=== PATIENT | female | born 1960 | race African-American/Black ===

== ENCOUNTER 2020-11-03 15:47 | Inpatient (IN) | payer MEDICAID ==
[~2020-11-03] VITALS: Ht 160 cm; Wt 77.1 kg
[~2020-11-03 15:47] MED LIST: APAP W/CODEINE1 TA2 PO; COLCHICINE0.6 MG PO; FOLIC ACID1 MG PO; HYDROCODONE-AP1 EAC6 PO; IBUPROFEN 600600 M1 PO; KEFLEX500 M1 PO; LEVAQUIN 500 M500 M3 PO; MEDROLDOSEPACK PO; METFORMIN HCL500 MG PO; METHOTREXATE 22.5 MG PO; MOTION SICKNESS25 M1 PO; NEURONTIN 300M300 M2 PO; OXYCODONE HCL 55 MG PO; PREDNISONE 10 M10 MG PO; PREDNISONE10 MG PO; PROTONIX40 M1 PO; PROTONIX40 M2 PO
--- NOTE | 2020-11-03 18:20 | NUR ---
ASSUMED PT CARE UPON ADMISISON FROM [facility] AT 1745. PT VSS, A&OX4. PT HAS NO COMPLAINTS OF PAIN. SLIGHT EDEMA IN BILATERAL LE. PT PLEASANT, CALLS WHEN NEEDED. FALL PRECAUTIONS IN PLACE. ABLE TO ANSWER ALL QUESTIONS FOR ADMISSION.
[2020-11-03 19:32] VITALS: BP 157/75
--- NOTE | 2020-11-04 03:29 | NUR ---
PATIENT AOX4 MAKES NEEDS KNOWN. PATIENT FEELS WEAK THIS SHIFT. PATIENT ON METHROTREXATE WEEKLY, PATIENT TOLD THIS NURSE SHE HAS NOT STARTED THE MED YET AND WAITING FOR DR. FERRER TO RESUME MED.PATIENT REFUSED GABAPENTINE D/T HER FEET FEELING HOT. FALL PRECAUTION IN BED. PATIENT DENIED PAIN OR DISCOMFORT. PATIENT IN BED ASLEEP AT THIS TIME BREATHING REGULAR AND UNLABOURED.
[2020-11-04 05:58] LABS: ABSOLUTE NEUTROPHILS 4.2 thou/uL (1.4-8.2); BASOPHILS 0.2 % (0.0-2.0); HEMATOCRIT 34.4 % (37.0-47.0); HEMOGLOBIN 10.9 gm/dL (12.0-15.0); LYMPHOCYTES 4.6 % (24.0-44.0); MCH 27.7 pg (26.0-34.0); MCHC 31.9 g/dL (28.0-37.0); MONOCYTES 6.8 % (1.0-8.0); PLATELET COUNT 173 thou/uL (150-400); POLYS 88.4 % (36.0-66.0); RBC 3.95 mil/uL (4.20-5.00); RDW 14.2 % (10.5-14.5); WBC 4.8 thou/uL (4.0-11.0)
[2020-11-04 06:23] LABS: CALCIUM 8.9 mg/dL (8.5-10.1); CREATININE 0.7 mg/dL (0.6-1.0); MAGNESIUM 2.2 mg/dL (1.8-2.4); POTASSIUM 4.4 mmol/L (3.5-5.1)
[2020-11-04 08:00] VITALS: BP 145/75
[2020-11-04 08:25] VITALS: BP 145/75
--- NOTE | 2020-11-04 12:45 | NUR ---
MET WITH PATIENT WHO ADMITS TO [facility] TRANSFER FROM [facility] FOR RHEMATOLOGY CONSULT. PATIENT WITH HX OF LUPUS. PATIENT HAS A PREV STAY AT [facility] IN WHICH PATIENT WAS DC HOME. SHE REPORTS SHE READMITTED TO [facility] DUE TO WEAKNESS. SHE REPORTS THAT WAY HER FATHERS DECISION. SHE LIVES IN HOME WITH HER FATHER AND GRANDCHILD. SHE STAIRS TO ENTER HOME. SHE WAS USING [employer] WHICH WAS NEW PREV INDEPENDENT WITH ADLS. 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 SHE HAS NO HEALTH INSURANCE. SHE HAS PRIMARY CARE PHYS DR SUE MAY, INTERNAL MEDICINE AT [facility]. REHAB CONSULT IN PROCESS. PATIENT AGREEABLE SHE WANTS TO GET BETTER AND WOULD BE AGREEABLE TO [facility].
[2020-11-04 19:38] VITALS: BP 140/73
--- NOTE | 2020-11-04 21:57 | NUR ---
ASSUMED CARE OF PT AT 0700. PT IS A&OX4 AND VITAL SIGNS ARE STABLE. PT DENIES PAIN. NOTED +1 EDEMA TO BLE, LEGS ELEVATED TOLERATED. ACCU CHECKS ACHS. IV TO LEFT AC PLACED AFTER RIGHT AC LOST PLACEMENT DURING TRANSFER. PT TOLERATED PO MEDICATIONS WITHOUT ISSUES. AT APPROXIMATELY 1500 PT CALLED OUT FOR ASSISTANCE AND WAS VOMITING WHEN NURSING ENTERED THE ROOM. PT REPORTED SUDDEN ONSET OF N/V, BG WNL, VITAL SIGNS STABLE. PT REPORTED HEADACHE AND DIZZINESS. PT STATED "IF I OPEN MY EYES I FEEL OFF BALANCE." PT DENIED RINGING IN EARS. PT INCONTINENT OF URINE AT THIS TIME DUE TO INABILITY TO SAFELY MOVE TO COMMODE. PT ASSISTED INTO BED BY NURSING STAFF. APPROXIMATELY 15 MINUTES AFTER GETTING INTO BED PT REPORTED RELIEF AND DENIES FURTHER N/V. CARDIAC STRIPS REVIEWED AND PLACED ON CHART. FALL PRECAUTIONS IN PLACE AND NURSING WILL CONTINUE TO MONITOR.
--- NOTE | 2020-11-05 02:46 | NUR ---
PT CARE ASSUMED WITH PT IN BED WATCHING TV.PT IS A/O X4.PT IS UP WITH X1 ASSIST TO BSC AND ALSO USES BEDPAN.PT HAS BLE EDEMA AND DENIED PAIN .PT IS ACCUCHECK ACHS WITH LOW SSI.WILL CONTINUE TO MONITOR PER POC
[2020-11-05 08:26] VITALS: BP 166/81
[2020-11-05 15:23] VITALS: BP 122/68
[2020-11-05 19:58] VITALS: BP 125/59
[2020-11-06 01:05] LABS: GLYCOHEMOGLOBIN (HGB A1C) 5.9 % (4.8-5.6)
--- NOTE | 2020-11-06 02:34 | NUR ---
PT CARE ASSUMED WITH PT IN CHAIR WATCHING TV.PT IS A/O X4.PT IS UP WITH X1 ASSIST TO THE BSC.PT DENIED PAIN AND FEVER.PT HAS BLE EDEMA.PT IS ACCUCHECK ACHS WITH LOW SSI.IV ACCESS ON LT AC WITH NS @100.WILL CONTINUE TO MONITOR PER POC
[2020-11-06 08:01] VITALS: BP 145/71
[2020-11-06 11:46] LABS: BASOPHILS 0.2 % (0.0-2.0); MCH 27.8 pg (26.0-34.0); WBC 5.1 thou/uL (4.0-11.0)
[2020-11-06 11:48] LABS: EOSINOPHILS 0.7 % (0.0-3.0); HEMATOCRIT 33.9 % (37.0-47.0); HEMOGLOBIN 10.9 gm/dL (12.0-15.0); LYMPHOCYTES 14.1 % (24.0-44.0); MCHC 32.2 g/dL (28.0-37.0); MCV 86.4 fL (80.0-100.0); MONOCYTES 7.9 % (1.0-8.0); PLATELET COUNT 152 thou/uL (150-400); POLYS 77.1 % (36.0-66.0); RBC 3.92 mil/uL (4.20-5.00); RDW 14.1 % (10.5-14.5)
[2020-11-06 12:03] LABS: ALBUMIN 2.3 g/dL (3.4-5.0); CALCIUM 8.9 mg/dL (8.5-10.1); CREATININE 0.7 mg/dL (0.6-1.0); MAGNESIUM 1.8 mg/dL (1.8-2.4); POTASSIUM 3.7 mmol/L (3.5-5.1); TOTAL BILIRUBIN 0.5 mg/dL (0.2-1.0); TOTAL PROTEIN 6.6 g/dL (6.4-8.2)
[2020-11-06 16:31] VITALS: BP 129/55
[2020-11-06 19:36] VITALS: BP 148/73
--- NOTE | 2020-11-06 19:55 | NUR ---
Assumed pt care at 7am.Pt in and out of bed with sba.Assessment completed.vss. Pt up in chair for all meals.Dr Garza here,order noted.Fall bundle in place. Pt encouraged to call for assist as needed.Pt will possiblt transfer to rehab in am. No verbal c/o . Will continue to monitor.
--- NOTE | 2020-11-07 02:39 | NUR ---
PT CARE ASSUMED WITH PT IN CHAIR .PT IS A/O X4.PT IS UP TO [facility] STANDBY ASSIST.PT APPEARED TO BE IN NO DISTRESS.PT IS ACCUCHECK ACHS.PT HAS BLE EDEMA.WILL CONTINUE TO MONITOR
[2020-11-07 04:59] LABS: URINE BILIRUBIN NEGATIVE (Negative); URINE BLOOD NEGATIVE (Negative); URINE CLARITY CLEAR; URINE COLOR YELLOW; URINE GLUCOSE-RANDOM* NEGATIVE (Negative); URINE KETONES NEGATIVE (Negative); URINE LEUKOCYTES-REFLEX TRACE (Negative); URINE NITRITE-REFLEX NEGATIVE (Negative); URINE PROTEIN (DIPSTICK) NEGATIVE (Negative); URINE UROBILINOGEN 0.2 E.U./dl (0.2-1.0)
[2020-11-07 05:15] LABS: ABSOLUTE NEUTROPHILS 3.9 thou/uL (1.4-8.2); BASOPHILS 0.3 % (0.0-2.0); EOSINOPHILS 0.6 % (0.0-3.0); HEMATOCRIT 32.1 % (37.0-47.0); HEMOGLOBIN 10.3 gm/dL (12.0-15.0); LYMPHOCYTES 13.5 % (24.0-44.0); MCH 27.8 pg (26.0-34.0); MCV 86.9 fL (80.0-100.0); MONOCYTES 11.2 % (1.0-8.0); PLATELET COUNT 128 thou/uL (150-400); POLYS 74.4 % (36.0-66.0); RBC 3.69 mil/uL (4.20-5.00); RDW 14.1 % (10.5-14.5); WBC 5.2 thou/uL (4.0-11.0)
[2020-11-07 05:27] LABS: ALBUMIN 2.2 g/dL (3.4-5.0); CALCIUM 8.8 mg/dL (8.5-10.1); CREATININE 0.6 mg/dL (0.6-1.0); MAGNESIUM 2.1 mg/dL (1.8-2.4); PHOSPHORUS 2.8 mg/dL (2.5-4.9); TOTAL BILIRUBIN 0.4 mg/dL (0.2-1.0); TOTAL PROTEIN 6.6 g/dL (6.4-8.2)
[2020-11-07 07:49] VITALS: BP 153/74
--- NOTE | 2020-11-07 13:22 | NUR ---
ASSUMED PT CARE THIS AM. PT VSS, A&OX4. PT PLEASANT, CALLS APPROPRIATELY WHEN NEEDED. PT COMPLAINING OF NO PAIN. PT UP WITH PHYSICAL THERAPY THIS AM. PT PIVOTS TO THE BEDSIDE COMMODE. TOOK MEDS WELL THIS AM WITHOUT COMPLAINT. HYDRATION ENCOURAGED. BLE EDEMA NOTED, ENCOURAGED TO RAISE FEET. IV PATENT, FLUIDS INFUSING.
--- NOTE | 2020-11-07 16:02 | NUR ---
PT WAS SEEN BY RHEUMATOLOGY THIS DAY. [facility] IS FOLLOWING AND HAVE INDICATED THAT THEY WOULD LIKELY BE ABLE TO ACCEPT IF PT NEEDED A SHORT STAY ONCE MEDICALLY STABLE. [facility] COSNULTED AND SHE WAS SEEN BY WELFARE AIDE THIS DAY. CM TO FOLLOW INDICATED WITH DC PLANNING.
[2020-11-07 16:54] VITALS: BP 134/59
[2020-11-07 19:48] VITALS: BP 166/84
[2020-11-08 06:06] LABS: HEMATOCRIT 32.1 % (37.0-47.0); HEMOGLOBIN 10.4 gm/dL (12.0-15.0); MCHC 32.3 g/dL (28.0-37.0); MCV 86.5 fL (80.0-100.0); RBC 3.71 mil/uL (4.20-5.00); RDW 14.6 % (10.5-14.5); WBC 5.4 thou/uL (4.0-11.0)
[2020-11-08 06:22] LABS: CREATININE 0.6 mg/dL (0.6-1.0); POTASSIUM 3.9 mmol/L (3.5-5.1)
--- NOTE | 2020-11-08 08:07 | NUR ---
Assumed pt care at 1900. A/OX4, VSS.Denies pain on assessment, up with SBA to BSC. Continent of B&B, IVF infusing via LAC w/o any problems voiced.Pt chose to sleep on the chair,feet elevated as tolorated.NSR on telemetry.Fall precautions in place.
[2020-11-08 08:28] VITALS: BP 124/59
--- NOTE | 2020-11-08 11:22 | NUR ---
ASSUMED PT CARE THIS AM. PT VSS, A&OX4. PT COMPLAINING OF NO PAIN AT THIS TIME. PT IN CHAIR, LEGS ARE ELEVATED. BLE EDEMA NOTED. IV PATENT, FLUIDS INFUSING WELL. MEDS TAKEN WITHOUT COMPLAINT THIS AM. PT AMBULATORY TO THE BEDSIDE COMMODE, PT HAS HAD NO DIFFICULTIES TELLING US WHEN SHE NEEDS TO GO TO THE BATHROOM. HYDRATION ENCOURAGED.
--- NOTE | 2020-11-08 15:25 | NUR ---
PT CONTINUES TO WORK WITH THERAPY. [facility] INDICATED THAT PT MAY BE TOO HIGH LEVEL FOR ADMISSION FOR ACUTE INPATIENT REHAB SERVICES AT THIS TIME. PT RESIDES IN [place] AND IT HAD BEEN INDICATED THAT OP THERAPY COULD BE VOUCHERED HERE PT WOULD NOT HAVE CONVIEIENT TRANSPORT TO AND FROM OP THERPAY HERE AT [facility] HAD SPOKEN WITH OP THREAOY DIRECTOR AT [facility] AND IT HAD BEEN INDICATED THAT THEY COULDN'T PROVIDE ANY HOMER VISITS TO PT UPON DC. PT HAD NEEDED TO WORK WITH PT ON STEPS THIS DAY BUT COMPLAINED OF DIZZINESS AND HADN'T TRIED THEM. CM COMMUNICATED WITH MIRNA AND WILL FOLLOW UP WITH [facility] LIAISON AND WATER TAXI FERRY OPERATOR. CM TO FOLLOW INDICATED WITH DC PLANNING.
[2020-11-08 16:25] VITALS: BP 135/59
[2020-11-08 19:30] VITALS: BP 150/66
[2020-11-09 01:33] VITALS: BP 131/72
--- NOTE | 2020-11-09 03:43 | NUR ---
Assumed pt care at 1900. A/OX4,VSS and afebrile at beginning of shift but woke up complaining of not feeling well,nausea no emesis,temp 101.4 medicated with Tylenol temp down to 101.0,reports feeling a little better though,Juliet PRORATE CLERK notified of status,monitor pt for another hour and check temparature. Resting in bed quietly at this time,w/o distress will continue to monitor pt. SR on telemetry. Fall precautions in place.
--- NOTE | 2020-11-09 12:04 | NUR ---
CARE TEAM INDICATED THAT SHE IS TOO HIGH LEVEL FOR [facility] ACUTE INPATIENT REHAB ADMISSION. CM SPOKE WITH HER ABOUT OP PT/OT HERE OR AT [facility] IF THEY COULD PROVIDE IT. PT INDCIATED SHE WOULD PREFER TO HAVE A HH OPTION IF POSSIBLE SHE FEARS HAVING TO NAVIGATE STEPS MULTIPAL TIMES A DAY. SHE ALSO DOESN'T WANT TO HAVE TO RELY ON HER 76YR OLD DAD FOR TRANSPORT TO AND FROM. CM SENT REFERRAL TO [facility] FOR REVIEW FOR HOMER VISITS. PT INDICATED SHE HAD BEEN SET UP WITH [facility] THROUGH [facility]. CM TO FIGURE OUT WHAT TYPE OF RESOUCE THIS IS. PT INDICATED SHE NAY NEED MEDICAL TRNASPORT HOME IF SHE IS TO DC HOME THIS DAY. CM TO FOLLOW INDICATED WITH DC PLANNING.
[2020-11-09 15:33] VITALS: BP 131/72
--- NOTE | 2020-11-09 16:18 | NUR ---
ASSUMED CARE OF PATIENT AT SHIFT CHANGE. ASSESSMENT CHARTED. MEDICATION ADMINISTERED PER EMAR. VSS. PATIENT IS A&OX4 AND MAKES NEEDS KNOWN. PATIENT DENIES PAIN BUT VOICES NUMBNESS THAT HAS BEEN BOTHERING HER FOR APPROX. 3 WEEKS. MRI OF THORACIC SPINE WAS COMPLETED THIS MORNING W NO SIGNIFICANT FINDINGS. PATIENT WAS RE-EXAMINED BY PT AND OT TO SEE IF SHE QUALIFIED FOR [facility] BUT IS TOO HIGH FUNCTIONING. ANXIOUS THIS DAY D/T ANNIVERSARY OF MOTHERS . PROVIDED W DISTRACTIONS SUCH MODELING MICHELLE AND COLORING PAGES. PROVIDER AWARE OF DISCHARGE AND PATIENT WILL GO HOME W HH. DISCHARGE INSTRUCTIONS WILL BE PROVIDED ALONG W REQUESTED MRI RESULTS. VAN TRANSPORTATION TO PICK PATIENT UP AT [phone]. WILL CONTINUE TO MONITOR
[2020-11-09] MEDS ORDERED: CLOPIDOGREL75 MG PO (16:34)
[2020-11-09] MEDS ORDERED: DEXAMETHASONE 22 M1 PO (16:35)
[2020-11-09] MEDS ORDERED: B-12500 MCG PO (16:35)
[2020-11-09] MEDS ORDERED: TREXALL10 MG PO (16:36)
--- NOTE | 2020-11-09 20:58 | NUR ---
I AGREE WITH NURSING ASSESSMENT AND NURSING NOTE DONE BY SHAMAR/HAND BINDER CUTTER.
== END 2020-11-09 19:45 | disposition home health service (06) | DRG 65 ==
LOC: 4W 15:47
PROVIDERS: Hospitalist; Internal Medicine; Nurse Practitioner; Psychiatry & Neurology Neurology; ADMIT Internal Medicine; ATTEND Internal Medicine
DX: I63.81 Other cerebral infarction due to occlusion or stenosis of small artery (principal); M33.20 Polymyositis, organ involvement unspecified; R65.10 Systemic inflammatory response syndrome (SIRS) of non-infectious origin without acute organ dysfunction; Q21.1 Atrial septal defect; M32.9 Systemic lupus erythematosus, unspecified; G62.9 Polyneuropathy, unspecified; E11.42 Type 2 diabetes mellitus with diabetic polyneuropathy; I73.00 Raynaud's syndrome without gangrene; R50.9 Fever, unspecified; M35.3 Polymyalgia rheumatica; Z79.899 Other long term (current) drug therapy
CPT/HCPCS: 10045; 10047